=== PATIENT | female | born 1940 | race Caucasian/White ===

== ENCOUNTER 2020-09-12 10:51 | Outpatient (CLI) | payer MEDICARE ==
[2020-09-12 13:07] LABS: BILIRUBIN,URINE NEGATIVE (NEGATIVE); COLOR,URINE YELLOW (YELLOW); LEUKOCYTE ESTERASE ,URINE NEGATIVE (NEGATIVE); NITRITE, URINE NEGATIVE (NEGATIVE); PH,URINE 5.5 (5.0-8.0); PROTEIN,URINE NEGATIVE (NEGATIVE); UGLUCOSE NEGATIVE (NEGATIVE); UROBILINOGEN,URINE 0.2 EU/dL (0.2)
[2020-09-12 13:24] LABS: BACTERIA,URINE Rare /HPF (None Seen); RBC,URINE 0-2 /HPF (0-2); SQUAMOUS EPITHELIAL CELL,UR Rare /HPF (None Seen); WBC,URINE 0-2 /HPF (0-3)
== END 2020-09-12 23:59 | disposition home or self-care (01) ==
LOC: MSC 10:51
PROVIDERS: ATTEND Internal Medicine
DX: M54.5 Low back pain (principal); R35.0 Frequency of micturition; I12.9 Hypertensive chronic kidney disease with stage 1 through stage 4 chronic kidney disease, or unspecified chronic kidney disease; N18.9 Chronic kidney disease, unspecified; N28.1 Cyst of kidney, acquired; Z96.641 Presence of right artificial hip joint; Z79.899 Other long term (current) drug therapy
CPT/HCPCS: 36415; 81001; 84155; G0463

== ENCOUNTER 2020-09-15 13:19 | Outpatient (CLI) | payer MEDICARE | END 2020-09-15 23:59 | disposition home or self-care (01) | LOC: US 13:19 | PROVIDERS: ATTEND Internal Medicine | DX: N28.1 Cyst of kidney, acquired (principal); N18.9 Chronic kidney disease, unspecified | CPT/HCPCS: 76770-TC ==

== ENCOUNTER → 2021-01-04 | Outpatient (CLI) | payer MEDICARE ==
[2021-01-04 12:47] LABS: ALANINE AMINOTRANSFERASE 26 U/L (12-78); ALBUMIN 4.1 g/dL (3.4-5.0); ALKALINE PHOSPHATASE 80 U/L (46-116); ASPARTATE AMINOTRANSFERASE 24 U/L (15-37); BILIRUBIN,TOTAL 0.7 mg/dL (0.2-1.0); CALCIUM, SERUM 9.9 mg/dL (8.5-10.1); CARBON DIOXIDE 27 mmol/L (21-32); CHLORIDE 104 mmol/L (98-107); CREATININE 1.5 mg/dL (0.6-1.3); GLUCOSE 100 mg/dL (74-106); PHOSPHORUS 3.2 mg/dL (2.5-4.9); POTASSIUM 4.5 mmol/L (3.5-5.1); SODIUM SERUM 140 mmol/L (136-145); TOTAL PROTEIN, SERUM 7.8 g/dL (6.4-8.2); UREA NITROGEN, BLOOD 28 mg/dL (7-18)
== END | disposition home or self-care (01) ==
LOC: MSC 11:18
PROVIDERS: ATTEND Internal Medicine
DX: I12.9 Hypertensive chronic kidney disease with stage 1 through stage 4 chronic kidney disease, or unspecified chronic kidney disease (principal); N18.9 Chronic kidney disease, unspecified; N28.1 Cyst of kidney, acquired; M70.71 Other bursitis of hip, right hip; Z96.641 Presence of right artificial hip joint; E78.5 Hyperlipidemia, unspecified; M54.5 Low back pain; Z79.899 Other long term (current) drug therapy
CPT/HCPCS: 36415; 80053; 83735; 84100; G0463

== ENCOUNTER → 2021-01-19 | Outpatient (CLI) | payer MEDICARE | END | disposition home or self-care (01) | LOC: MSC 15:00 | PROVIDERS: ATTEND Internal Medicine | DX: I12.9 Hypertensive chronic kidney disease with stage 1 through stage 4 chronic kidney disease, or unspecified chronic kidney disease (principal); N18.9 Chronic kidney disease, unspecified; M54.5 Low back pain; N28.1 Cyst of kidney, acquired; E78.5 Hyperlipidemia, unspecified; Z96.641 Presence of right artificial hip joint; M70.51 Other bursitis of knee, right knee; Z79.899 Other long term (current) drug therapy ==

== ENCOUNTER 2021-04-03 11:35 | Outpatient (CLI) | payer MEDICARE ==
[2021-04-03 14:55] LABS: ALANINE AMINOTRANSFERASE 26 U/L (12-78); ALBUMIN 4.1 g/dL (3.4-5.0); ALKALINE PHOSPHATASE 86 U/L (46-116); ASPARTATE AMINOTRANSFERASE 24 U/L (15-37); BILIRUBIN,TOTAL 0.8 mg/dL (0.2-1.0); CARBON DIOXIDE 24 mmol/L (21-32); CHLORIDE 103 mmol/L (98-107); CREATININE 1.4 mg/dL (0.6-1.3); GLUCOSE 93 mg/dL (74-106); MAGNESIUM 1.9 mg/dL (1.8-2.4); PHOSPHORUS 3.7 mg/dL (2.5-4.9); POTASSIUM 4.6 mmol/L (3.5-5.1); SODIUM SERUM 140 mmol/L (136-145); TOTAL PROTEIN, SERUM 7.9 g/dL (6.4-8.2); UREA NITROGEN, BLOOD 26 mg/dL (7-18)
== END 2021-04-03 23:59 | disposition home or self-care (01) ==
LOC: MSC 11:35
PROVIDERS: ATTEND Internal Medicine
DX: M19.90 Unspecified osteoarthritis, unspecified site (principal); I12.9 Hypertensive chronic kidney disease with stage 1 through stage 4 chronic kidney disease, or unspecified chronic kidney disease; N18.9 Chronic kidney disease, unspecified; M54.50 Low back pain, unspecified; J32.9 Chronic sinusitis, unspecified; N28.1 Cyst of kidney, acquired; E78.5 Hyperlipidemia, unspecified; Z96.641 Presence of right artificial hip joint; M70.71 Other bursitis of hip, right hip; Z79.899 Other long term (current) drug therapy
CPT/HCPCS: 36415; 80053; 83735; 84100; G0463